=== PATIENT | female | born 1985 | race Caucasian/White ===

== ENCOUNTER 2016-12-23 17:54 | Outpatient (CLI) | payer BC, MEDICAID ==
[~2016-12-23] VITALS: Ht 177.8 cm; Wt 107.0 kg
[~2016-12-23 17:54] MED LIST: LAMO25TA5 PO
[2016-12-23 18:23] VITALS: BP 108/57
[2016-12-31] MEDS ORDERED: PREN1TAB62 PO (14:38)
[2016-12-31] MEDS ORDERED: IRON1TAB PO (14:40)
[2016-12-31] MEDS ORDERED: RANI150C PO (14:41)
== END 2016-12-23 19:15 | disposition home or self-care (01) ==
LOC: LDOP 17:54
PROVIDERS: ATTEND Obstetrics & Gynecology
DX: O26.893 Other specified pregnancy related conditions, third trimester (principal); R10.2 Pelvic and perineal pain; R06.02 Shortness of breath; Z3A.32 32 weeks gestation of pregnancy
CPT/HCPCS: 59025; 81001; 87086; 99211; G0463

== ENCOUNTER 2017-02-04 22:00 | Outpatient (CLI) | payer MEDICAID ==
[~2017-02-04] VITALS: Ht 177.8 cm; Wt 110.0 kg
[~2017-02-04 22:00] MED LIST changes: +IRON1TAB PO; +PREN1TAB62 PO; +RANI150C PO
[2017-02-04 22:39] VITALS: BP 111/61
== END 2017-02-04 23:15 | disposition home or self-care (01) ==
LOC: LDOP 22:00
PROVIDERS: ATTEND Student in an Organized Health Care Education/Training Program
DX: O42.92 Full-term premature rupture of membranes, unspecified as to length of time between rupture and onset of labor (principal); Z3A.38 38 weeks gestation of pregnancy
CPT/HCPCS: 59025; 89060; 99211; G0463; Q0114

== ENCOUNTER 2017-02-11 14:33 | Outpatient (CLI) | payer MEDICAID ==
[~2017-02-11] VITALS: Ht 177.8 cm; Wt 95.5 kg
[2017-02-11 15:19] VITALS: BP 110/64
== END 2017-02-11 16:06 | disposition home or self-care (01) ==
LOC: LDOP 14:33
PROVIDERS: ATTEND Obstetrics & Gynecology
DX: O26.893 Other specified pregnancy related conditions, third trimester (principal); O62.9 Abnormality of forces of labor, unspecified; R10.9 Unspecified abdominal pain; Z3A.39 39 weeks gestation of pregnancy
CPT/HCPCS: 59025; 89060; 99211; G0463; Q0114

== ENCOUNTER 2017-02-12 11:03 | Outpatient (CLI) | payer MEDICAID ==
[~2017-02-12] VITALS: Ht 177.8 cm; Wt 103.6 kg
[2017-02-12 11:21] VITALS: BP 118/57
[2017-02-12] MEDS ORDERED: HYDROcodone/APAP 5/325 TABLET ONE (15:16)
[2017-02-12] MEDS ORDERED: HYDROcodone/APAP 5/325 TABLET PO ONE (15:30)
[2017-02-12] MEDS ORDERED: hydrOXYzine 50 MG/ML IM PRN (15:30)
[2017-02-12] MEDS ORDERED: hydrOXyzine 50MG TABLET PO ONE (15:30)
== END 2017-02-12 15:30 | disposition home or self-care (01) ==
LOC: LDOP 11:03 → EDSTATUS 02-17 11:03
PROVIDERS: ATTEND Obstetrics & Gynecology
DX: O26.893 Other specified pregnancy related conditions, third trimester (principal); R10.9 Unspecified abdominal pain; Z3A.39 39 weeks gestation of pregnancy
CPT/HCPCS: 59025; 89060; 99211; G0463; Q0114

== ENCOUNTER 2017-02-12 19:46 | Inpatient (IN) | payer MEDICAID ==
[~2017-02-12] VITALS: Ht 177.8 cm; Wt 103.6 kg
[2017-02-12] MEDS ORDERED: D5%-LACTATED RINGERS 1,000 ML IV SCH (20:06)
[2017-02-12] MEDS ORDERED: OXYTOCIN 30U/ 0.9% NaCL 500ML 500 ML IV ONE (20:06)
[2017-02-12] MEDS ORDERED: MISOPROSTOL 200 MCG TABLET ONE (20:15)
[2017-02-12] MEDS ORDERED: LIDOCAINE 1%, 20ML ONE (20:15)
[2017-02-12] MEDS ORDERED: FENTANYL PF 100 MCG/2ML ONE (20:15)
[2017-02-12] MEDS ORDERED: OXYTOCIN 30U/ 0.9% NaCL 500ML 500 ML ONE (20:15)
[2017-02-12] MEDS ORDERED: NEWBORN KIT ONE (20:15)
[2017-02-12] MEDS: LACTATED RINGERS 1,000 ML IV SCH ×3 (20:24→22:46)
[2017-02-12 20:30] VITALS: BP 96/60
[2017-02-12] MEDS ORDERED: FENTANYL PF 100 MCG/2ML IV PRN (20:30)
[2017-02-12] MEDS ORDERED: CALCIUM CARBONATE 500 MG TAB.CHEW PO PRN (20:30)
[2017-02-12] MEDS ORDERED: TERBUTALINE 1 MG/ML, 1ML SQ PRN (20:30)
[2017-02-12] MEDS ORDERED: PLEASE ENTER HEIGHT AND WEIGHT MC SCH (20:30)
[2017-02-12] MEDS ORDERED: TERBUTALINE 1 MG/ML, 1ML IVPush PRN ×2 (20:30)
[2017-02-12] MEDS ORDERED: ALUMINUM/MAG/SIMETHICONE 30 ML UDC PO PRN (20:30)
[2017-02-12] MEDS ORDERED: FENTANYL PF 100 MCG/2ML IVPush PRN (20:30)
[2017-02-12] MEDS ORDERED: ONDANSETRON 2MG/ML, 2ML IVPush PRN (20:30)
[2017-02-12 20:34] LABS: DIFF TOTAL CELLS COUNTED 100 CELL DIFF
[2017-02-12 21:27] LABS: VERIFY COUNTS? YES
[2017-02-12] MEDS ORDERED: FENTANYL/BUPIV./NS/PF 250 ML EPIDCONT ONE (21:27)
[2017-02-12 21:30] LABS: POLYCHROMASIA 1+
[2017-02-12 21:32] LABS: ANISOCYTOSIS 3+
[2017-02-12 21:33] LABS: LARGE PLATELETS 1+
[2017-02-13] MEDS ORDERED: OXYTOCIN 10 UNITS/ML, 1ML IM PRN (01:30)
[2017-02-13] MEDS ORDERED: HYDROcodone/APAP 5/325 TABLET PO PRN ×2 (01:30)
[2017-02-13] MEDS ORDERED: MISOPROSTOL 200 MCG TABLET PR PRN (01:30)
[2017-02-13] MEDS ORDERED: METHYLERGONOVINE 0.2 MG/ML IM PRN (01:30)
[2017-02-13] MEDS ORDERED: OXYTOCIN 30U/ 0.9% NaCL 500ML 500 ML ONE (01:31)
[2017-02-13] MEDS: OXYTOCIN 30U/ 0.9% NaCL 500ML 500 ML IV SCH ×2 (01:36→11:02)
[2017-02-13] MEDS ORDERED: MEPERIDINE/PF 100 MG/ML ONE (02:20)
[2017-02-13] MEDS ORDERED: MEPERIDINE/PF 100 MG/ML IVPush ONE (02:30)
[2017-02-13 03:00] VITALS: BP 114/68
[2017-02-13 05:00] VITALS: BP 102/64
[2017-02-13 07:25] VITALS: BP 100/65
[2017-02-13 08:51] LABS: DIFF TOTAL CELLS COUNTED 100 CELL DIFF
[2017-02-13] MEDS: DOCUSATE 100 MG CAPSULE PO PRN (08:51)
[2017-02-13] MEDS: PRENATAL VIT/IRON/FA 1 EACH TABLET PO SCH (08:51)
[2017-02-13 08:52] LABS: MICROCYTOSIS 1+; VERIFY COUNTS? YES
[2017-02-13 08:53] LABS: ANISOCYTOSIS 3+
[2017-02-13 11:30] VITALS: BP 107/66
[2017-02-13] MEDS: IBUPROFEN 600 MG TABLET PO PRN ×2 (14:15→22:10)
[2017-02-13 16:15] VITALS: BP 99/57
[2017-02-13 19:20] VITALS: BP 87/53
[2017-02-13] MEDS ORDERED: DIPH,PERTUSS(ACELL),TET VAC/PF NC IM-VACC ONE (21:15)
[2017-02-14 00:30] VITALS: BP 91/54
[2017-02-14] MEDS: IBUPROFEN 600 MG TABLET PO PRN (07:31)
[2017-02-14] MEDS: PRENATAL VIT/IRON/FA 1 EACH TABLET PO SCH (07:31)
[2017-02-14] MEDS: DOCUSATE 100 MG CAPSULE PO PRN (07:31)
[2017-02-14 07:49] VITALS: BP 104/60
[2017-02-14] MEDS ORDERED: IBUP-1222 PO (09:14)
[2017-02-14] MEDS ORDERED: FERR325T20 PO (09:14)
[2017-02-14] MEDS ORDERED: DOCU-30 PO (09:15)
== END 2017-02-14 11:15 | disposition home or self-care (01) | DRG 775 ==
LOC: LDOP 19:46 → LDIP 20:11 → 2NW 02-13 02:51
PROVIDERS: ADMIT Obstetrics & Gynecology; ATTEND Obstetrics & Gynecology
PROC: 10E0XZZ Delivery of Products of Conception, External Approach (ICD-10-PCS; principal; 2017-02-13)
PROC: 00HU33Z Insertion of Infusion Device into Spinal Canal, Percutaneous Approach (ICD-10-PCS; 2017-02-13)
PROC: 3E0R3CZ (ICD-10-PCS; 2017-02-13)
DX: O99.844 Bariatric surgery status complicating childbirth (principal); Z37.0 Single live birth; Z3A.39 39 weeks gestation of pregnancy; F32.9 Major depressive disorder, single episode, unspecified; O99.344 Other mental disorders complicating childbirth; O99.02 Anemia complicating childbirth; D50.9 Iron deficiency anemia, unspecified; O69.89X0 Labor and delivery complicated by other cord complications, not applicable or unspecified; O71.82 Other specified trauma to perineum and vulva; Z88.1 Allergy status to other antibiotic agents; Z88.0 Allergy status to penicillin; Z88.2 Allergy status to sulfonamides; Z87.440 Personal history of urinary (tract) infections; Z91.5 Personal history of self-harm
CPT/HCPCS: 36415; 81001; 85025; 86850; 86900; 87086; 90715; J3010; J2175; J2590; J7120